=== PATIENT | female | born 1995 | race Hispanic/Latino ===

== ENCOUNTER 2017-08-06 15:19 | Emergency (ER) | payer BC ==
[2017-08-06 16:33] LABS: Bacteria/HPF None Seen HPF (None Seen); Bilirubin Negative (Negative); Blood, Urine Small (Negative); Glucose, Urine (Dipstick) Negative (Negative); Hyaline Casts/LPF 0-3 HYALINE CAST LPF (0-3 Hyaline); Ketone, Urine Negative (Negative); Nitrite Negative (Negative); Protein, Urine (Dipstick) Negative (Neg-Trace); RBC/HPF 0-3 HPF (0-3); Squamous Epithelial 0-3 HPF (0-3); Urobilinogen 0.2 mg/dL (0.2-1.0)
== END 2017-08-06 17:29 | disposition home or self-care (01) ==
LOC: ERS 15:19
DX: N93.9 Abnormal uterine and vaginal bleeding, unspecified (principal)
CPT/HCPCS: 81003; 81015; 81025; 87086; 87480; 87491; 87510; 87591; 87660; 99284

== ENCOUNTER 2018-07-31 14:47 | Outpatient (CLI) | payer BC, OTHER ==
--- NOTE | 2018-07-31 15:58 | ULT ---
ULTRASOUND OB COMPLETE STANDARD 07/31/18 HISTORY: Size and dates. COMPARISON: None. FINDINGS: Single viable intrauterine with average ultrasound age of 18 week, 4 day. Estimated date of delivery 12/28/18. Estimated weight is 250 grams. Biparietal diameter 4.03 cm 18 week, 2 day Head circumference 15.33 cm 18 week, 3 day Abdominal circumference 13.11 cm 18 week, 5 day Femur length 2.86 cm 18 week, 6 day Heart rate documented at 144 beats per minute. Cervix measures 4.6 cm in length. During the beginning of the examination with an empty bladder, the tip of the ---- is within 2 cm of the cervix, although was further away after the urinary bladder filled. The four chamber heart, spine, cerebellum, cisterna magnum, lateral ventricles, stomach, kidneys, cor d insertion, cervical, thoracic and lumbar and sacral spine as well as lips/nose, upper extremities, lower extremities, three vessel cord are all normal. The amniotic fluid is adequate. IMPRESSION: Single viable intrauterine with average ultrasound age of 18 week, 4 day. Estimated date of delivery of 12/28/18. POS: [facility]
== END 2018-07-31 14:48 | disposition home or self-care (01) ==
LOC: BICULT 14:47
PROVIDERS: ATTEND Family Medicine
DX: Z34.80 Encounter for supervision of other normal pregnancy, unspecified trimester (principal)
CPT/HCPCS: 76805

== ENCOUNTER 2018-11-01 14:55 | Day surgery (SDC) | payer BC, OTHER ==
[2018-11-01 15:34] VITALS: BMI 33.5
--- NOTE | 2018-11-01 16:41 | PDOC.LDHP ---
Labor and Delivery H&P Chief complaint: abdominal pain HPI: 23 y/o at 31w3d, patient of Dr. Bina Contreras presents with occasional cramping. Pain in lower abdomen lasting for a few seconds at a time. Has not been well hydrated today. Denies VB, LOF, ctx, or decreased FM. No UTI symptoms. ROS neg for HEENT, cv, pulm, gi, gu, neuro, psych, skin, musculoskeletal or constitutional symptoms other than mentioned above. OB History Details: 2 prior term SVDs Current complications: none Past Medical History: None Current medications: pre- vitamins Previous surgical history: none Allergies/Adverse Reactions: Allergies Allergy/AdvReac Type Severity Reaction Status Date / Time Sulfa (Sulfonamide Allergy Intermediate Rash Verified 02/27/13 12:21 Antibiotics) Social history: none - Physical Exam Vital signs reviewed and normal: yes General: NAD, resting Lungs: nonlabored breathing Abdomen: gravid Extremeties: no edema FHT: category 1 (140s, mod variabiltiy, + accels, no decels) [place] contractions every: none - Vaginal Exam cm dilated: 0 Effacement: 0% Station: -3 - Assessment 23 y/o at 31w3d with no e/o labor and likely cramping due to dehydration. status reassuring with reactive NST. - Plan -: D/c home with precautions. Advised to stay well hydrated and follow up with Dr. Contreras as scheduled.
== END 2018-11-01 16:31 | disposition home or self-care (01) ==
LOC: L&D/OP 14:55
PROVIDERS: ATTEND Family Medicine
DX: O99.89 Other specified diseases and conditions complicating pregnancy, childbirth and the puerperium (principal); R10.9 Unspecified abdominal pain; E86.0 Dehydration; Z3A.31 31 weeks gestation of pregnancy
CPT/HCPCS: 99283

== ENCOUNTER 2018-11-09 09:26 | Day surgery (SDC) | payer BC, OTHER ==
[2018-11-09 09:56] VITALS: BMI 33.7
--- NOTE | 2018-11-09 10:12 | PDOC.FPROB ---
FMR OB H&P: HPI - History of Present Illness Chief Complaint: Vaginal bleeding Indentification: 23 year old History of Present Illness: 23 year old at 32.4 wks presents with an episode of vaginal bleeding at 8:30 this AM. She states that she went to the restroom and noted bright red blood and discharge on her panties. She called Dr. Marvel Plascencia[facility] clinic and they requested she come into hospital to be evaluated. Patient states she has been to the restroom since that time and has not noted any bleeding. She denies contractions, LoF, sexual intercourse within the last 48 hours. She does endorse poor fluid intake over the last few days. 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 FRUIT RECEIVER History: Denies any significant FRUIT RECEIVER history - Surgical History Sx History: Denies - Social History Social History: Denies alcohol, tobacco, or drug use - Family History Family History: Insignificant FMR OB H&P: Medications - Current Home Medications: Medication Instructions Recorded Confirmed Type Vitamin 1 tablet PO DAILY 12/15/15 11/09/18 History Allergies/Adverse Reactions: Allergies Allergy/AdvReac Type Severity Reaction Status Date / Time Sulfa (Sulfonamide Allergy Intermediate Rash Verified 11/09/18 09:53 Antibiotics) FMR OB H&P: ROS - Review of Systems General: denies: fever/chills, weight/appetite/sleep changes Eyes: denies: vision changes, double vision ENT: denies: nasal congestion, rhinorrhea, sore throat Cardiovascular: denies: chest pain, palpitation, edema Respiratory: denies: cough, congestion, shortness of breath Gastrointestinal: denies: abdominal pain, indigestion, bloating, nausea, vomiting, diarrhea Genitourinary (Female): reports: vaginal discharge, vaginal bleeding. denies: dysuria, polyuria, vaginal pain, contractions, vaginal pressure Musculoskeletal: denies: pain, stiffness Neurologic: denies: numbness, syncope Integumentary: denies: itching, rash, lesions Hematologic/Lymphatic: denies: prolonged or excessive bleeding Psychological: denies: depression, anxiety FMR OB H&P: Physical Exam - Physical Exam General: NAD, awake, alert and oriented HEENT: MMM, grossly normal vision, grossly normal hearing Neck: supple Heart: RRR, pulses present General: no respiratory distress, good air movement Abdomen: soft, gravid, non-tender Musculoskeletal: normal gait and station, pulses present Neurological: no tremor, no focal deficit Skin: no rash, capillary refill <2 seconds Lymphatic: no unusual bruising or bleeding, no purpura Psychiatric: intact recent and remote memory, good judgement and insight, normal mood and affect FMR OB H&P: A/P - Problem List (1) Third trimester at less than 36 weeks Status: Acute Code(s): Z34.93 - ENCNTR FOR SUPRVSN OF NORMAL PREG, UNSP, THIRD TRIMESTER (2) Vaginal bleeding Status: Acute Code(s): N93.9 - ABNORMAL UTERINE AND VAGINAL BLEEDING, UNSPECIFIED Comment: Pt evaluated and care plan forumulated with Dr England. Agree with above Disposition: 23 year old at 32.4 wks presents with vaginal bleeding sIUP - at 32.4 wks - PNC appears to be uncomplicated Vaginal bleeding - has since resolved - 1 episode noted this AM when using the restroom - bedside sono does not show placenta previa - no recent sexual intercourse - no history consistent with infection - cervical check closed/thick/high Dispo: Stable. Plan to d/c home with return precautions. Patient advised to return if bleeding resumes. Avoid intercourse. May return to work. Discussion: Date/Time: 11/09/18 1010 This H&P was discussed with Dr. Nguyễn who agrees with the above documentation and plan. Signature: Varsha England, DO PGY-2
== END 2018-11-09 10:55 | disposition home or self-care (01) ==
LOC: L&D/OP 09:26
PROVIDERS: ATTEND Family Medicine
DX: O46.93 Antepartum hemorrhage, unspecified, third trimester (principal); Z3A.32 32 weeks gestation of pregnancy; Z79.899 Other long term (current) drug therapy; Z88.2 Allergy status to sulfonamides
CPT/HCPCS: 59025; 76815; 99282

== ENCOUNTER 2018-11-24 12:55 | Outpatient (CLI) | payer BC, OTHER ==
--- NOTE | 2018-11-24 14:28 | ULT ---
COMPLETE OB ULTRASOUND GREATER THAN 14 WEEKS: HISTORY: Bleeding. FINDINGS: Single viable intrauterine fetus is noted in cephalic presentation. The placenta is anterior. No ev idence for placenta previa or abruptio placenta. heart rate 124 b.p.m. Amniotic fluid is with in normal limits. Cervical length 4.4 cm. Biometry: BPD 7.8 cm-31 weeks 0 days Head circumference 28.7 cm-31 weeks 4 days Abdominal circumference 28.3 cm-32 weeks 2 days Femur length 6.5 cm-33 weeks 0 days Anatomy: Limited anatomy was seen. The bladder, left kidney, 3-vessel cord, 4-chamber heart, stomach, and right kidney were visual ized. The remainder of the anatomy was not adequately evaluated. IMPRESSION: Single viable intrauterine fetus 32 weeks 0 days, estimated date of confinement 01/19/2019, estimated weight 1972 gm. Clinical age by last menstrual period 34 weeks 5 days. Estimated date of conf inement by last menstrual period 12/31/2018. Incomplete anatomy evaluation. Anterior placenta without evidence for placenta previa or abruptio placenta. POS: [facility]
== END 2018-11-24 12:56 | disposition home or self-care (01) ==
LOC: ULT 12:55
PROVIDERS: ATTEND Family Medicine
DX: O20.9 Hemorrhage in early pregnancy, unspecified (principal)
CPT/HCPCS: 76805

== ENCOUNTER 2018-12-18 07:12 | Day surgery (SDC) | payer BC, OTHER ==
[2018-12-18 08:12] VITALS: BMI 35.7
[2018-12-18] MEDS ORDERED: Lactated Ringer's 1,000 ML IV SCH (09:15)
[2018-12-18] MEDS ORDERED: Acetaminophen 500 MG TAB PO SCH (09:15)
[2018-12-18 09:25] LABS: Bilirubin Negative (Negative); Blood, Urine Negative (Negative); Clarity CLEAR (Clear); Glucose, Urine (Dipstick) Negative (Negative); Leukocyte Negative (Negative); Nitrite Negative (Negative); Protein, Urine (Dipstick) Negative (Neg-Trace); Specific Gravity, Urine 1.006 (1.002-1.036); pH, Urine 6.5 (5.0-9.0)
[2018-12-18 09:28] LABS: Bacteria/HPF None Seen HPF (None Seen); Hyaline Casts/LPF 0-3 HYALINE CAST LPF (0-3 Hyaline); RBC/HPF 0-3 HPF (0-3); Squamous Epithelial 0-3 HPF (0-3); WBC/HPF 0-3 HPF (0-3)
[2018-12-18 09:59] LABS: #Lymphocytes 0.5 thou/uL (1.20-3.40); #Monocytes 0.5 thou/uL (0.11-0.59); #Neutrophils 4.5 thou/uL (1.40-6.50); %Eosinophils 0.5 % (0.0-10.0); %Lymphocytes 8.6 % (21.0-51.0); %Monocytes 9.2 % (0.0-10.0); %Neutrophils 81.7 % (42.0-75.0); Mean Corpuscular HGB CONC 32.9 g/dL (32.0-36.0); Mean Platelet Volume 9.6 fL (7.4-10.4); Platelet Count 146 thou/uL (130-400); RBC Distribution Width 13.7 % (11.5-14.5); Red Blood Cell (RBC) Count 4.07 mill/uL (4.20-5.40); White Blood Cell (WBC) Count 5.5 thou/uL (4.8-10.8)
[2018-12-18] MEDS ORDERED: Oseltamivir 75 MG CAP PO SCH (10:30)
--- NOTE | 2018-12-18 11:31 | PRG ---
DATE OF SERVICE: 12/18/2018 PRIMARY OB: Bina Contreras MD CHIEF COMPLAINT: Fever, cough, and abdominal pains. HISTORY OF PRESENT ILLNESS: The patient is a 23-year-old G3, P2 female with an intrauterine at 38 weeks gestation, who began having a cough yesterday morning and began a fever last night. She reports a temperature of 101. She reports the cough, feel like it is causing pain more centrally, nonproductive. 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 She also reports that she has received a flu vaccination this year. The patient reports some shortness of breath and chest pain that was evaluated down the emergency room and was shown to have a normal EKG and had little concern for any further cardiac workup. The patient also denies nausea or vomiting. Denies diarrhea or constipation. Denies abdominal pains when she is not having contraction. Denies any new rashes, hip problems, knee problems, or muscle weakness. She denies vaginal bleeding, leakage of fluid, or urinary urgency. The pain she reports coming fairly frequently, but is not of her primary concern as it do not cause a lot of discomfort. PAST MEDICAL HISTORY: Negative. PAST SURGICAL HISTORY: Negative. She has had two vaginal deliveries. SOCIAL HISTORY: Denies drug, alcohol, or tobacco use. ALLERGIES: SULFA DRUGS. MEDICATIONS: vitamins. OB LABS: Blood type is A positive. GC and chlamydia are negative. One-hour Glucola is 161. Her 3-hour test was passed with one abnormal finding. Her HIV is nonreactive. She is GBS positive. REVIEW OF SYSTEMS: Per HPI. PHYSICAL EXAMINATION: VITAL SIGNS: Blood pressure 133/75, heart rate of 115, respiratory rate 18, saturating at 100% on room air, and temperature 101. GENERAL: She appears to be in no acute distress. She is alert, oriented, cooperative, and pleasant to interact with. HEAD: Normocephalic and atraumatic. LUNGS: Clear to auscultation bilaterally. HEART: Tachycardic with a regular rhythm. Abdomen: Gravid. She does have some suprapubic tenderness. Otherwise, no significant tenderness to palpation. No CVA tenderness. No vertebral tenderness. EXTREMITIES: Nontender and nonedematous. : Her cervical exam per nursing staff is 216, -3 station, which she reports is unchanged from cervical check by her doctor two days ago. DIAGNOSTIC DATA: heart tracing performed for abdominal pain and . Baseline is noted to be in the 160s with moderate long-term variability positive 15 x 15 accelerations. Urinalysis shows negative protein, negative glucose, trace ketones, negative nitrites, negative leukocyte esterase, negative squamous cells, negative bacteria. CBC has a white count of 5.5, hemoglobin 11, hematocrit 33.4, and platelets of 146,000. Flu test is positive for flu A. ASSESSMENT AND PLAN: The patient is a 23-year-old female with an intrauterine at 38 weeks and 1 day, who is febrile and positive for flu A. The patient is receiving 1 L of IV fluids at this moment and will be getting a dose of Tamiflu. It appears since arrival that the baseline of the baby's heart rate is coming down and anticipated to normalize as her temperature resolves. She is GBS positive. She has no signs of labor at this time, though she is cathi irregularly. Once she has finished her IV fluids and her Tamiflu is provided, she will be going home with a prescription Tamiflu to be taken twice a day for the next five days. Information will be forwarded to her primary provider and the patient has been counseled to seek medical attention, has been given term precautions and to keep follow up with her primary OB as scheduled, but to call prior to presenting. Job ID: [id number]
== END 2018-12-18 12:10 | disposition home health service (06) ==
LOC: L&D/OP 07:12 → ERS 07:12 → L&D/OP 07:12 → EDSTATUS 08:06 → L&D/OP 12:10
PROVIDERS: ATTEND Family Medicine
DX: O99.513 Diseases of the respiratory system complicating pregnancy, third trimester (principal); J09.X2 Influenza due to identified novel influenza A virus with other respiratory manifestations; Z3A.38 38 weeks gestation of pregnancy; Z88.2 Allergy status to sulfonamides
CPT/HCPCS: 36415; 81001; 85025; 87804; 96360; 96361; 99284

== ENCOUNTER 2018-12-25 10:01 | Inpatient (IN) | payer BC, OTHER ==
[2018-12-25 10:51] LABS: Amnisure Internal Control QC ACCEPTABLE (ACCEPTABLE); Amnisure Test No Membranes Rupture (No Rupture)
[2018-12-25] MEDS ORDERED: NS / Oxytocin 40 units/1000ml 1,000 ML IV PRN (11:02)
[2018-12-25] MEDS ORDERED: Diphenoxylate HCl/Atropine Tablet PO PRN ×2 (11:02)
[2018-12-25] MEDS ORDERED: HYDROcodone/Acetaminophen 5/325 mg Tablet PO PRN ×3 (11:02→13:01)
[2018-12-25] MEDS ORDERED: Methylergonovine 0.2 MG/ML VIAL IM PRN (11:02)
[2018-12-25] MEDS ORDERED: Ibuprofen 800 MG TAB PO PRN (11:02)
[2018-12-25] MEDS ORDERED: Ondansetron PF 4 MG/2 ML Vial IVP PRN ×2 (11:02→13:01)
[2018-12-25] MEDS ORDERED: Lidocaine 1% (PF) 30 ML VIAL SC PRN (11:02)
[2018-12-25] MEDS ORDERED: Promethazine HCl 25 MG/ML VIAL IM PRN ×2 (11:02→13:01)
[2018-12-25] MEDS ORDERED: Butorphanol Tartrate 1 MG/ML VIAL SLOW IVP PRN (11:02)
[2018-12-25] MEDS ORDERED: Misoprostol 200 MCG TAB PR PRN (11:02)
[2018-12-25] MEDS ORDERED: Acetaminophen 500 MG TAB PO PRN (11:02)
[2018-12-25] MEDS ORDERED: Carboprost 250 MCG/ML AMP IM PRN (11:02)
--- NOTE | 2018-12-25 11:08 | PDOC.LDHP ---
Labor and Delivery H&P Chief complaint: loss of fluid HPI: 23 y/o at 39w1d, patient of Dr. Bina Contreras, presents with LOF at 0700 with ctx starting at 0800. Denies VB or decreased FM. ROS neg for HEENT, cv, pulm, gi, gu, neuro, psych, skin, musculoskeletal or constitutional symptoms other than mentioned above. OB History Details: 2 prior term SVDs Current complications: none Past Medical History: None Previous surgical history: none Allergies/Adverse Reactions: Allergies Allergy/AdvReac Type Severity Reaction Status Date / Time Sulfa (Sulfonamide Allergy Intermediate Rash Verified 11/09/18 09:53 Antibiotics) Social history: none - Physical Exam Vital signs reviewed and normal: yes General: NAD, resting Lungs: nonlabored breathing Abdomen: gravid Extremeties: no edema FHT: category 1 (150s, mod variability, + accels, no decels) [place] contractions every: q 3 mins - Vaginal Exam cm dilated: 3 Effacement: 75% Station: -2 - Assessment L&D Assessment: term rupture in membranes - Plan Plan: admit to L&D, labor augmentation if indicated, GBS antibiotic prophylaxis , informed consent obtained, anesthesia consult for pain management (if desired)
[2018-12-25] MEDS ORDERED: Penicillin G Potassium 5 MILL.UNITS VIAL ONE (11:10)
[2018-12-25] MEDS ORDERED: Penicillin G Potassium 5 MILL.UNITS in Sodium Chloride 0.9% 100 ML IVPB SCH (11:15)
[2018-12-25] MEDS ORDERED: Lactated Ringer's 1,000 ML IV SCH (11:15)
[2018-12-25] MEDS ORDERED: NS w/ Oxytocin 10 units 500 ML ONE (11:38)
[2018-12-25 11:45] LABS: Hemoglobin 12.5 g/dL (12.0-16.0); Mean Corpuscular HGB CONC 33.1 g/dL (32.0-36.0); Mean Corpuscular Hemoglobin 26.6 pg (27.0-31.0); Mean Corpuscular Volume 80.3 fL (78.0-98.0); Mean Platelet Volume 9.3 fL (7.4-10.4); Platelet Count 196 thou/uL (130-400); RBC Distribution Width 13.7 % (11.5-14.5); Red Blood Cell (RBC) Count 4.71 mill/uL (4.20-5.40); White Blood Cell (WBC) Count 6.3 thou/uL (4.8-10.8)
[2018-12-25] MEDS ORDERED: NS w/ Oxytocin 10 units 500 ML IV SCH (11:45)
[2018-12-25 12:22] LABS: HBSAg Index 0.29 S/CO (0-0.99); Hep B Surf Ag Non-Reactive S/CO (NonReactive)
[2018-12-25 12:23] LABS: Syphilis Antibody Nonreactive (Nonreactive); Syphilis Antibody Index 0.03 S/CO (<1.00 Non-Reactive)
[2018-12-25] MEDS: NS / Oxytocin 40 units/1000ml 1,000 ML IV SCH ×2 (12:43→15:43)
[2018-12-25] MEDS ORDERED: Milk Of Magnesia 30 ML UDCUP PO PRN (13:01)
[2018-12-25] MEDS ORDERED: Preparation H Ointment 28 GM TUBE PR PRN (13:01)
[2018-12-25] MEDS ORDERED: Acetaminophen/Codeine 30-300mg Tablet PO PRN (13:01)
[2018-12-25] MEDS ORDERED: Bisacodyl 10 MG SUPP PR PRN (13:01)
[2018-12-25] MEDS ORDERED: Lanolin Ointment 7 GM TUBE TOP PRN (13:01)
[2018-12-25] MEDS ORDERED: Benzocaine-Menthol 82.5 ML CAN TOP PRN (13:01)
[2018-12-25] MEDS ORDERED: diphenhydrAMINE 25 MG CAP PO PRN (13:01)
[2018-12-25] MEDS: Ibuprofen 800 MG TAB PO SCH ×2 (13:11→21:53)
[2018-12-25 13:44] VITALS: BMI 35.2
[2018-12-25] MEDS ORDERED: Penicillin G 2.5 MILL.units 2.5 MILL.UNITS in Premix Bag 1 BAG IVPB SCH (16:00)
[2018-12-25] MEDS: Ferrous Sulfate 325 MG TAB PO SCH (21:43)
[2018-12-25] MEDS: Docusate Calcium (SURFAK) 240 MG CAP PO SCH (21:52)
[2018-12-26] MEDS: Ibuprofen 800 MG TAB PO SCH ×3 (07:30→20:26)
[2018-12-26] MEDS: Ferrous Sulfate 325 MG TAB PO SCH ×2 (07:49→18:03)
[2018-12-26] MEDS: Prenatal Vitamin 1 TAB PO SCH (08:52)
[2018-12-26] MEDS: Docusate Calcium (SURFAK) 240 MG CAP PO SCH ×2 (08:52→20:26)
[2018-12-27] MEDS: Ibuprofen 800 MG TAB PO SCH (05:50)
[2018-12-27 09:44] VITALS: BP 117/71; TEMP 98.7
[2018-12-27] MEDS: Ferrous Sulfate 325 MG TAB PO SCH (09:47)
[2018-12-27] MEDS: Prenatal Vitamin 1 TAB PO SCH (09:56)
[2018-12-27] MEDS: Docusate Calcium (SURFAK) 240 MG CAP PO SCH (09:56)
== END 2018-12-27 14:00 | disposition home or self-care (01) | DRG 807 ==
LOC: L&D/OP 10:01 → L&D 11:33 → 3SW 18:18
PROVIDERS: ADMIT Family Medicine; ATTEND Family Medicine
PROC: 10E0XZZ Delivery of Products of Conception, External Approach (ICD-10-PCS; principal; 2018-12-25)
DX: O99.824 Streptococcus B carrier state complicating childbirth (principal); Z37.0 Single live birth; Z3A.39 39 weeks gestation of pregnancy; Z88.2 Allergy status to sulfonamides
CPT/HCPCS: 84112; 85027; 86780; 86850; 86900; 86901; 87340; 99285; J0595; J2001; J2540